=== PATIENT | male | born 1955 | race Two or more races ===

== ENCOUNTER 2021-06-05 09:32 | Emergency (ER) | payer MEDICAID ==
[~2021-06-05] VITALS: Ht 177.8 cm; Wt 81.6 kg
[2021-06-05 09:51] VITALS: BP 135/76
== END 2021-06-05 12:34 | disposition home or self-care (01) ==
LOC: EDBD 09:32 → ER 09:32
DX: S16.1XXA Strain of muscle, fascia and tendon at neck level, initial encounter (principal); M47.892 Other spondylosis, cervical region; F12.10 Cannabis abuse, uncomplicated; W01.0XXA Fall on same level from slipping, tripping and stumbling without subsequent striking against object, initial encounter; Y93.89 Activity, other specified; Y92.89 Other specified places as the place of occurrence of the external cause; Y99.8 Other external cause status
CPT/HCPCS: 72125; 93005

== ENCOUNTER 2021-08-03 11:52 | Inpatient (IN) | payer MEDICAID ==
[~2021-08-03] VITALS: Ht 167.6 cm; Wt 70.5 kg
[2021-08-03] MEDS ORDERED: SODIUM CHLORIDE 0.9% 1,000 ML IV ONE (12:00)
[2021-08-03] MEDS ORDERED: LORazepam 2MG/ML-1ML VIAL IV ONE ×3 (12:00→20:00)
[2021-08-03] MEDS ORDERED: cloNIDine HCL 0.1 MG TAB PO ONE ×2 (14:15→18:45)
[2021-08-03 14:29] LABS: Eosinophils # (auto) 0 10 ^3/uL (0-0.8); Lymphocytes # (auto) 1.1 10 ^3/uL (0.4-5.4)
[2021-08-03 14:31] LABS: Basophils # (auto) 0 10 ^3/uL (0-0.2); Basophils % (auto) 0.3 % (0.0-2.0); Hematocrit 39.4 % (41.0-53.0); Hemoglobin 12.8 g/dL (13.5-17.5); Mean Corpuscular Hgb Conc. 32.6 g/dL (32.0-36.0); Mean Corpuscular Volume 79.7 fL (80.0-100.0); Monocytes % (auto) 6.9 % (0.0-12.0); Neutrophils # (auto) 11.7 10 ^3/uL (1.6-8.6); Neutrophils % (auto) 84.8 % (37.0-80.0); Red Blood Cells 4.94 10^6/uL (4.5-5.90); Red Cell Distribution Width 15.1 % (11.8-14.3); White Blood Cell 13.8 10^3/uL (4.4-10.8)
[2021-08-03 14:50] LABS: Potassium 4.2 mmol/L (3.5-5.1)
[2021-08-03 14:55] LABS: Albumin 3.5 g/dL (3.4-5.0); BUN/Creatinine Ratio 22.3; Bilirubin, Total 1.2 mg/dL (0.2-1.0); Calcium 9.5 mg/dL (8.5-10.1); Magnesium 3.3 mg/dL (1.6-2.6); Total Protein 8.2 g/dL (6.4-8.2)
[2021-08-03 16:32] LABS: Urine Bacteria FEW /hpf (None Seen); Urine Blood 3+ /uL (Negative); Urine Mucus FEW (None Seen); Urine Specific Gravity 1.023 (1.001-1.035); Urine WBC 2 /hpf (0 - 3)
[2021-08-03] MEDS ORDERED: MORPHINE SULFATE INJECTION 2 MG/ML SYRG IV PRN ×2 (16:45→21:45)
[2021-08-03] MEDS ORDERED: NITROGLYCERIN 0.4 MG SL TAB SL PRN ×2 (16:45→21:45)
[2021-08-03 18:30] LABS: Cholesterol 110 mg/dL (< 200)
[2021-08-03 18:33] LABS: HDL Cholesterol 58 mg/dL (40-59); LDL Cholesterol 40 mg/dL (< 100); Triglycerides 74 mg/dL (< 150)
[2021-08-03] MEDS ORDERED: LABETALOL HCL 5 MG/ML 4ML SYRINGE IV ONE (18:45)
[2021-08-03] MEDS ORDERED: HALOPERIDOL LACTATE 5 MG/ML INJ VIAL ONE (19:49)
[2021-08-03] MEDS ORDERED: LORazepam 2MG/ML-1ML VIAL ONE (19:50)
[2021-08-03] MEDS ORDERED: HALOPERIDOL LACTATE 5 MG/ML INJ VIAL IM ONE (20:00)
[2021-08-03] MEDS ORDERED: levoFLOXacin 250MG 50 ML IV ONE (21:30)
[2021-08-03] MEDS ORDERED: LORazepam 2MG/ML-1ML VIAL IV PRN (21:30)
[2021-08-03] MEDS ORDERED: HALOPERIDOL LACTATE 5 MG/ML INJ VIAL IM PRN (21:30)
[2021-08-03] MEDS ORDERED: NIFEdipine ER 30 MG TAB PO ONE (21:30)
[2021-08-03] MEDS ORDERED: ATENOLOL 25 MG TAB PO ONE (21:30)
[2021-08-03] MEDS ORDERED: FAMOTIDINE (10MG/ML) 2ML VL IV ONE (21:30)
[2021-08-03] MEDS ORDERED: DEXTROSE (50%) 50ML SYRG IV PRN (21:45)
[2021-08-03] MEDS ORDERED: LORazepam 0.5 MG TAB PO PRN (21:45)
[2021-08-03] MEDS ORDERED: ACETAMINOPHEN 325 MG TAB PO PRN (21:45)
[2021-08-03] MEDS ORDERED: ONDANSETRON HCL 4 MG/2 ML VIAL IV PRN (21:45)
[2021-08-03] MEDS ORDERED: DOCUSATE SOD 100 MG CAP PO PRN (21:45)
[2021-08-03] MEDS ORDERED: ASPirin 81 mg TAB PO ONE (21:45)
[2021-08-03] MEDS: FAMOTIDINE (10MG/ML) 2ML VL IV SCH (22:00)
[2021-08-03] MEDS: SODIUM CHLORIDE 0.9% 1,000 ML IV SCH (22:15)
[2021-08-03] MEDS: hydrALAZINE HCL 25 MG TAB PO SCH (22:30)
[2021-08-03] MEDS: InsuLIN REG 1unit/0.01ml Soln (100units/ml) SC SCH (22:30)
[2021-08-03] MEDS: ATORVASTATIN 20 MG TAB PO SCH (22:30)
[2021-08-03] MEDS: ATENOLOL 25 MG TAB PO SCH (22:30)
[2021-08-03] MEDS: ACCU-CHEK COMFORT CURVE STRIP VI SCH (22:36)
[2021-08-03 23:42] LABS: Urine Bacteria FEW /hpf (None Seen); Urine Blood 3+ /uL (Negative); Urine Mucus FEW (None Seen); Urine Specific Gravity 1.021 (1.001-1.035); Urine WBC 523 /hpf (0 - 3)
[2021-08-03 23:45] LABS: Amphetamine Screen, Urine NEGATIVE (NEGATIVE); Barbiturate Scree,Urine NEGATIVE (NEGATIVE); Benzodiazephine Screen, Urine NEGATIVE (NEGATIVE); Cannabinoid Screen, Urine NEGATIVE (NEGATIVE); Cocaine Screen, Urine NEGATIVE (NEGATIVE); Opiate Scree,Urine NEGATIVE (NEGATIVE); Phencyclidine Screen, Urine NEGATIVE (NEGATIVE)
[2021-08-04] MEDS: hydrALAZINE HCL 25 MG TAB PO SCH ×2 (06:00→14:00)
[2021-08-04] MEDS: InsuLIN REG 1unit/0.01ml Soln (100units/ml) SC SCH ×4 (07:36→22:00)
[2021-08-04] MEDS: ACCU-CHEK COMFORT CURVE STRIP VI SCH ×4 (07:36→22:17)
[2021-08-04 08:14] LABS: Basophils % (auto) 0.5 % (0.0-2.0); Eosinophils # (auto) 0 10 ^3/uL (0-0.8); Hemoglobin 11.6 g/dL (13.5-17.5); Lymphocytes # (auto) 0.9 10 ^3/uL (0.4-5.4); Lymphocytes % (auto) 9.6 % (10.0-50.0); Mean Corpuscular Hemoglobin 25.9 pg (28.0-32.0); Neutrophils # (auto) 7.8 10 ^3/uL (1.6-8.6)
[2021-08-04 08:17] LABS: Basophils # (auto) 0 10 ^3/uL (0-0.2); Eosinophils % (auto) 0.2 % (0.0-7.0); Hematocrit 35.1 % (41.0-53.0); Mean Corpuscular Volume 78.5 fL (80.0-100.0); Monocytes # (auto) 0.7 10 ^3/uL (0-1.3); Monocytes % (auto) 7.7 % (0.0-12.0); Nucleated Red Blood Cells % 0.1 %; Red Blood Cells 4.48 10^6/uL (4.5-5.90); Red Cell Distribution Width 15.2 % (11.8-14.3); White Blood Cell 9.5 10^3/uL (4.4-10.8)
[2021-08-04 08:27] LABS: INR 1.12 (0.9-1.15); Partial Thromboplastin Time 24.2 sec (23.6-33.0)
[2021-08-04 08:41] LABS: Albumin 2.8 g/dL (3.4-5.0); BUN/Creatinine Ratio 35.6; Bilirubin, Total 1.1 mg/dL (0.2-1.0); Calcium 8.6 mg/dL (8.5-10.1); Magnesium 2.5 mg/dL (1.6-2.6); Phosphorus 3.6 mg/dL (2.5-4.90); Total Protein 6.9 g/dL (6.4-8.2); Uric Acid 6.6 mg/dL (3.5-7.2)
[2021-08-04 09:04] VITALS: BP 102/64
[2021-08-04] MEDS: ASPirin 81 mg TAB PO SCH (10:00)
[2021-08-04] MEDS: FAMOTIDINE (10MG/ML) 2ML VL IV SCH ×2 (10:00→21:48)
[2021-08-04] MEDS: NIFEdipine ER 30 MG TAB PO SCH (10:00)
[2021-08-04] MEDS: ENOXAPARIN SOD 40 MG/0.4 ML SYRINGE SC SCH (10:00)
[2021-08-04] MEDS: ATENOLOL 25 MG TAB PO SCH ×2 (10:00→21:49)
[2021-08-04 11:22] VITALS: BP 169/84
[2021-08-04] MEDS: LABETALOL HCL 5 MG/ML 4ML SYRINGE IV PRN (11:43)
[2021-08-04] MEDS: hydrALAZINE HCL 20 MG/ML VL IV PRN (14:15)
[2021-08-04] MEDS: SODIUM CHLORIDE 0.9% 1,000 ML IV SCH (14:15)
[2021-08-04 16:59] VITALS: BP 160/87
[2021-08-04 17:02] VITALS: BP 150/82
[2021-08-04 21:00] VITALS: BP 146/82
[2021-08-04] MEDS: levoFLOXacin 250MG 50 ML IV SCH (21:48)
[2021-08-04] MEDS: ATORVASTATIN 20 MG TAB PO SCH (21:49)
[2021-08-05] MEDS: InsuLIN REG 1unit/0.01ml Soln (100units/ml) SC SCH ×5 (06:25→23:05)
[2021-08-05] MEDS: ACCU-CHEK COMFORT CURVE STRIP VI SCH ×4 (06:25→22:00)
[2021-08-05] MEDS: SODIUM CHLORIDE 0.9% 1,000 ML IV SCH (07:05)
[2021-08-05 09:00] VITALS: BP 147/84
[2021-08-05] MEDS: NIFEdipine ER 30 MG TAB PO SCH (09:37)
[2021-08-05] MEDS: ASPirin 81 mg TAB PO SCH (09:37)
[2021-08-05] MEDS: FAMOTIDINE (10MG/ML) 2ML VL IV SCH ×2 (09:37→22:45)
[2021-08-05] MEDS: ENOXAPARIN SOD 40 MG/0.4 ML SYRINGE SC SCH (09:38)
[2021-08-05] MEDS: ATENOLOL 25 MG TAB PO SCH ×2 (09:38→22:46)
[2021-08-05] MEDS: MORPHINE SULFATE INJECTION 2 MG/ML SYRG IV PRN ×2 (12:30→23:20)
[2021-08-05 13:00] VITALS: BP 138/80
[2021-08-05 16:49] VITALS: BP 142/83
[2021-08-05 21:29] VITALS: BP 142/85
[2021-08-05 22:00] VITALS: BP 142/85
[2021-08-05] MEDS: levoFLOXacin 250MG 50 ML IV SCH (22:45)
[2021-08-05] MEDS: ATORVASTATIN 20 MG TAB PO SCH (22:46)
[2021-08-06] MEDS: SODIUM CHLORIDE 0.9% 1,000 ML IV SCH ×2 (00:57→16:25)
[2021-08-06 05:00] VITALS: BP 150/82
[2021-08-06] MEDS: ACCU-CHEK COMFORT CURVE STRIP VI SCH ×4 (06:50→21:04)
[2021-08-06] MEDS: InsuLIN REG 1unit/0.01ml Soln (100units/ml) SC SCH ×4 (06:50→21:03)
[2021-08-06] MEDS: ASPirin 81 mg TAB PO SCH (09:32)
[2021-08-06] MEDS: ENOXAPARIN SOD 40 MG/0.4 ML SYRINGE SC SCH (09:32)
[2021-08-06] MEDS: FAMOTIDINE (10MG/ML) 2ML VL IV SCH ×2 (09:32→21:08)
[2021-08-06] MEDS: NIFEdipine ER 30 MG TAB PO SCH (09:33)
[2021-08-06] MEDS: ATENOLOL 25 MG TAB PO SCH ×2 (09:33→21:09)
[2021-08-06 12:00] VITALS: BP 132/80
[2021-08-06 18:47] VITALS: BP 138/76
[2021-08-06] MEDS: ATORVASTATIN 20 MG TAB PO SCH (21:08)
[2021-08-06] MEDS: levoFLOXacin 250MG 50 ML IV SCH (21:08)
[2021-08-06 22:02] VITALS: BP 121/64
[2021-08-07] MEDS: MORPHINE SULFATE INJECTION 2 MG/ML SYRG IV PRN ×2 (02:37→21:03)
[2021-08-07 05:00] VITALS: BP 154/80
[2021-08-07] MEDS: ACCU-CHEK COMFORT CURVE STRIP VI SCH ×4 (06:24→21:02)
[2021-08-07] MEDS: InsuLIN REG 1unit/0.01ml Soln (100units/ml) SC SCH ×4 (06:24→21:06)
[2021-08-07 08:38] VITALS: BP 113/65
[2021-08-07] MEDS: ASPirin 81 mg TAB PO SCH (09:21)
[2021-08-07] MEDS: NIFEdipine ER 30 MG TAB PO SCH (09:22)
[2021-08-07] MEDS: FAMOTIDINE (10MG/ML) 2ML VL IV SCH ×2 (09:23→21:07)
[2021-08-07] MEDS: ENOXAPARIN SOD 40 MG/0.4 ML SYRINGE SC SCH (09:23)
[2021-08-07] MEDS: ATENOLOL 25 MG TAB PO SCH ×2 (09:23→21:02)
[2021-08-07] MEDS: SODIUM CHLORIDE 0.9% 1,000 ML IV SCH (09:26)
[2021-08-07 13:00] VITALS: BP 134/76
[2021-08-07] MEDS: ALUM & MAG HYDROX-SIMETH LIQ(MAALOX) 30 ML PO PRN (16:21)
[2021-08-07 17:14] VITALS: BP 136/81
[2021-08-07] MEDS: levoFLOXacin 250MG 50 ML IV SCH (21:01)
[2021-08-07] MEDS: ATORVASTATIN 20 MG TAB PO SCH (21:01)
[2021-08-07 22:00] VITALS: BP 138/76
[2021-08-08] MEDS: SODIUM CHLORIDE 0.9% 1,000 ML IV SCH ×2 (00:21→18:25)
[2021-08-08 05:00] VITALS: BP 129/63
[2021-08-08 06:20] LABS: Calcium 8.4 mg/dL (8.5-10.1); Potassium 4.1 mmol/L (3.5-5.1)
[2021-08-08 06:22] LABS: BUN/Creatinine Ratio 28.6
[2021-08-08] MEDS: ACCU-CHEK COMFORT CURVE STRIP VI SCH ×4 (06:37→21:36)
[2021-08-08] MEDS: InsuLIN REG 1unit/0.01ml Soln (100units/ml) SC SCH ×4 (06:38→21:37)
[2021-08-08 09:00] VITALS: BP 151/85
[2021-08-08] MEDS: ASPirin 81 mg TAB PO SCH (09:30)
[2021-08-08] MEDS: NIFEdipine ER 30 MG TAB PO SCH (09:31)
[2021-08-08] MEDS: FAMOTIDINE (10MG/ML) 2ML VL IV SCH ×2 (09:31→21:34)
[2021-08-08] MEDS: ENOXAPARIN SOD 40 MG/0.4 ML SYRINGE SC SCH (09:31)
[2021-08-08] MEDS: ATENOLOL 25 MG TAB PO SCH ×2 (09:31→21:35)
[2021-08-08 11:10] VITALS: BP 151/85
[2021-08-08 13:00] VITALS: BP 127/61
[2021-08-08 17:00] VITALS: BP 131/77
[2021-08-08] MEDS: ATORVASTATIN 20 MG TAB PO SCH (21:34)
[2021-08-08] MEDS: levoFLOXacin 250MG 50 ML IV SCH (21:40)
[2021-08-08 22:00] VITALS: BP 149/75
[2021-08-09 05:00] VITALS: BP 157/71
[2021-08-09] MEDS: LABETALOL HCL 5 MG/ML 4ML SYRINGE IV PRN (05:37)
[2021-08-09] MEDS: InsuLIN REG 1unit/0.01ml Soln (100units/ml) SC SCH ×4 (06:07→22:00)
[2021-08-09] MEDS: ACCU-CHEK COMFORT CURVE STRIP VI SCH ×4 (06:07→22:11)
[2021-08-09 09:00] VITALS: BP 145/81
[2021-08-09] MEDS: ASPirin 81 mg TAB PO SCH (10:18)
[2021-08-09] MEDS: NIFEdipine ER 30 MG TAB PO SCH (10:19)
[2021-08-09] MEDS: ATENOLOL 25 MG TAB PO SCH ×2 (10:19→22:10)
[2021-08-09] MEDS: FAMOTIDINE (10MG/ML) 2ML VL IV SCH ×2 (10:20→22:06)
[2021-08-09] MEDS: ENOXAPARIN SOD 40 MG/0.4 ML SYRINGE SC SCH (10:20)
[2021-08-09] MEDS: SODIUM CHLORIDE 0.9% 1,000 ML IV SCH (11:05)
[2021-08-09 13:00] VITALS: BP 144/72
[2021-08-09] MEDS ORDERED: levoFLOXacin 500 MG TAB PO ONE (14:00)
[2021-08-09 17:00] VITALS: BP 129/69
[2021-08-09] MEDS ORDERED: LORazepam 2MG/ML-1ML VIAL IV PRN (21:15)
[2021-08-09 22:00] VITALS: BP 138/90
[2021-08-09] MEDS: ATORVASTATIN 20 MG TAB PO SCH (22:06)
[2021-08-10 00:03] LABS: Folate (Folic Acid) 7.85 ng/mL (5.38-24)
[2021-08-10] MEDS: SODIUM CHLORIDE 0.9% 1,000 ML IV SCH ×2 (03:45→21:00)
[2021-08-10 05:00] VITALS: BP 154/77
[2021-08-10] MEDS: InsuLIN REG 1unit/0.01ml Soln (100units/ml) SC SCH ×4 (06:31→21:53)
[2021-08-10] MEDS: ACCU-CHEK COMFORT CURVE STRIP VI SCH ×4 (06:31→21:49)
[2021-08-10 09:00] VITALS: BP 138/73
[2021-08-10] MEDS: ASPirin 81 mg TAB PO SCH (10:03)
[2021-08-10] MEDS: levoFLOXacin 500 MG TAB PO SCH (10:04)
[2021-08-10] MEDS: ATENOLOL 25 MG TAB PO SCH ×2 (10:05→22:00)
[2021-08-10] MEDS: NIFEdipine ER 30 MG TAB PO SCH (10:06)
[2021-08-10] MEDS: ENOXAPARIN SOD 40 MG/0.4 ML SYRINGE SC SCH (10:11)
[2021-08-10] MEDS: FAMOTIDINE (10MG/ML) 2ML VL IV SCH ×2 (10:12→21:58)
[2021-08-10 13:00] VITALS: BP 138/70
[2021-08-10] MEDS: HYDROcodone-ACET 5/325MG TAB PO PRN ×2 (15:56→20:55)
[2021-08-10 17:00] VITALS: BP 125/77
[2021-08-10 21:37] VITALS: BP 143/77
[2021-08-10] MEDS: ATORVASTATIN 20 MG TAB PO SCH (21:58)
[2021-08-11 05:03] VITALS: BP 162/87
[2021-08-11] MEDS: hydrALAZINE HCL 20 MG/ML VL IV PRN (05:31)
[2021-08-11] MEDS: InsuLIN REG 1unit/0.01ml Soln (100units/ml) SC SCH ×4 (06:23→22:13)
[2021-08-11] MEDS: ACCU-CHEK COMFORT CURVE STRIP VI SCH ×4 (06:23→22:06)
[2021-08-11] MEDS: FAMOTIDINE (10MG/ML) 2ML VL IV SCH ×2 (10:34→22:05)
[2021-08-11] MEDS: levoFLOXacin 500 MG TAB PO SCH (10:35)
[2021-08-11] MEDS: ASPirin 81 mg TAB PO SCH (10:35)
[2021-08-11] MEDS: NIFEdipine ER 30 MG TAB PO SCH (10:36)
[2021-08-11] MEDS: ATENOLOL 25 MG TAB PO SCH ×2 (10:37→22:07)
[2021-08-11] MEDS: ENOXAPARIN SOD 40 MG/0.4 ML SYRINGE SC SCH (10:37)
[2021-08-11 14:00] VITALS: BP 122/73
[2021-08-11 17:00] VITALS: BP 141/78
[2021-08-11] MEDS: SODIUM CHLORIDE 0.9% 1,000 ML IV SCH (17:31)
[2021-08-11 22:05] VITALS: BP 139/84
[2021-08-11] MEDS: ATORVASTATIN 20 MG TAB PO SCH (22:05)
[2021-08-12] MEDS ORDERED: BISACODYL 10 MG RECT SUPP PR PRN (01:45)
[2021-08-12] MEDS: ALUM & MAG HYDROX-SIMETH LIQ(MAALOX) 30 ML PO PRN (01:48)
[2021-08-12 05:20] VITALS: BP 169/80
[2021-08-12] MEDS: SODIUM CHLORIDE 0.9% 1,000 ML IV SCH ×2 (05:50→22:25)
[2021-08-12] MEDS: ACCU-CHEK COMFORT CURVE STRIP VI SCH ×4 (06:03→21:23)
[2021-08-12] MEDS: InsuLIN REG 1unit/0.01ml Soln (100units/ml) SC SCH ×4 (06:03→21:23)
[2021-08-12] MEDS: hydrALAZINE HCL 20 MG/ML VL IV PRN (06:20)
[2021-08-12 07:05] VITALS: BP 145/79
[2021-08-12 09:00] VITALS: BP 93/69
[2021-08-12] MEDS: ATENOLOL 25 MG TAB PO SCH ×2 (10:00→21:34)
[2021-08-12] MEDS: NIFEdipine ER 30 MG TAB PO SCH (10:00)
[2021-08-12] MEDS: FAMOTIDINE (10MG/ML) 2ML VL IV SCH ×2 (10:11→21:34)
[2021-08-12] MEDS: levoFLOXacin 500 MG TAB PO SCH (10:13)
[2021-08-12] MEDS: ASPirin 81 mg TAB PO SCH (10:13)
[2021-08-12] MEDS: ENOXAPARIN SOD 40 MG/0.4 ML SYRINGE SC SCH (10:15)
[2021-08-12] MEDS ORDERED: LACTULOSE 20Gm/30ML SOLN PO ONE (16:45)
[2021-08-12 17:00] VITALS: BP 148/83
[2021-08-12 18:17] LABS: Basophils # (auto) 0.1 10 ^3/uL (0-0.2); Hemoglobin 11.9 g/dL (13.5-17.5); White Blood Cell 11.3 10^3/uL (4.4-10.8)
[2021-08-12 18:19] LABS: Basophils % (auto) 0.6 % (0.0-2.0); Eosinophils # (auto) 0.2 10 ^3/uL (0-0.8); Eosinophils % (auto) 1.5 % (0.0-7.0); Hematocrit 37.3 % (41.0-53.0); Lymphocytes # (auto) 1.8 10 ^3/uL (0.4-5.4); Lymphocytes % (auto) 15.7 % (10.0-50.0); Mean Corpuscular Hemoglobin 25.5 pg (28.0-32.0); Mean Corpuscular Hgb Conc. 31.9 g/dL (32.0-36.0); Mean Corpuscular Volume 79.9 fL (80.0-100.0); Monocytes # (auto) 1.1 10 ^3/uL (0-1.3); Monocytes % (auto) 9.5 % (0.0-12.0); Neutrophils # (auto) 8.2 10 ^3/uL (1.6-8.6); Neutrophils % (auto) 72.7 % (37.0-80.0); Red Blood Cells 4.67 10^6/uL (4.5-5.90); Red Cell Distribution Width 15.5 % (11.8-14.3)
[2021-08-12 18:36] LABS: BUN/Creatinine Ratio 18.4; Calcium 9.1 mg/dL (8.5-10.1); Potassium 4.4 mmol/L (3.5-5.1)
[2021-08-12] MEDS: ATORVASTATIN 20 MG TAB PO SCH (21:34)
[2021-08-12 21:36] VITALS: BP 141/84
[2021-08-13 05:23] VITALS: BP 135/60
[2021-08-13] MEDS: InsuLIN REG 1unit/0.01ml Soln (100units/ml) SC SCH ×2 (06:47→11:38)
[2021-08-13] MEDS: ACCU-CHEK COMFORT CURVE STRIP VI SCH ×2 (06:47→11:37)
[2021-08-13 09:00] VITALS: BP 160/88
[2021-08-13] MEDS: ASPirin 81 mg TAB PO SCH (10:05)
[2021-08-13] MEDS: FAMOTIDINE (10MG/ML) 2ML VL IV SCH (10:05)
[2021-08-13] MEDS: levoFLOXacin 500 MG TAB PO SCH (10:06)
[2021-08-13] MEDS: NIFEdipine ER 30 MG TAB PO SCH (10:06)
[2021-08-13] MEDS: ENOXAPARIN SOD 40 MG/0.4 ML SYRINGE SC SCH (10:08)
[2021-08-13] MEDS: ATENOLOL 25 MG TAB PO SCH (10:08)
[2021-08-13 13:00] VITALS: BP 137/67
[2021-08-13 17:00] VITALS: BP 145/76
== END 2021-08-13 18:32 | disposition home or self-care (01) | DRG 720 ==
LOC: ER 11:52 → EDBD 11:52 → TELE 16:45 → TELE-WESTW 08-04 10:48
PROVIDERS: ADMIT Hospitalist; ATTEND Family Medicine
DX: A41.9 Sepsis, unspecified organism (principal); J96.01 Acute respiratory failure with hypoxia; N17.0 Acute kidney failure with tubular necrosis; G93.41 Metabolic encephalopathy; J18.9 Pneumonia, unspecified organism; D69.6 Thrombocytopenia, unspecified; N13.8 Other obstructive and reflux uropathy; E11.22 Type 2 diabetes mellitus with diabetic chronic kidney disease; F03.90 Unspecified dementia, unspecified severity, without behavioral disturbance, psychotic disturbance, mood disturbance, and anxiety; R62.7 Adult failure to thrive; N40.1 Benign prostatic hyperplasia with lower urinary tract symptoms; N18.32 Chronic kidney disease, stage 3b; I16.1 Hypertensive emergency; I12.9 Hypertensive chronic kidney disease with stage 1 through stage 4 chronic kidney disease, or unspecified chronic kidney disease; N39.0 Urinary tract infection, site not specified; K75.81 Nonalcoholic steatohepatitis (NASH); E86.1 Hypovolemia; E78.5 Hyperlipidemia, unspecified; R65.20 Severe sepsis without septic shock; D64.9 Anemia, unspecified; R55 Syncope and collapse; J98.11 Atelectasis; E78.00 Pure hypercholesterolemia, unspecified; Z20.822 Contact with and (suspected) exposure to COVID-19; Z81.8 Family history of other mental and behavioral disorders; Z82.49 Family history of ischemic heart disease and other diseases of the circulatory system; Z83.3 Family history of diabetes mellitus
CPT/HCPCS: 36415; 51702; 70450; 70551; 71045; 74176; 78582; 80048; 80053; 80061; 80307; 81001; 82306; 82607; 82746; 82962; 83036; 83735; 83880; 84100; 84443; 84484; 84550; 85025; 85379; 85610; 85730; 87040; 87086; 87426; 93005; 93306; 93886; 93970; 95819; 96361; 96365; 96375; 96376; 97163; G0378; J1815; J3490

== ENCOUNTER 2021-08-30 04:13 | Emergency (ER) | payer MEDICAID ==
[~2021-08-30] VITALS: Ht 170.2 cm; Wt 90.7 kg
[2021-08-30] MEDS ORDERED: LABETALOL HCL 5 MG/ML 4ML SYRINGE IV ONE (04:45)
[2021-08-30] MEDS ORDERED: LABETALOL HCL 200 MG TAB PO ONE (04:45)
[2021-08-30 09:30] VITALS: BP 180/105
[2021-08-30] MEDS ORDERED: cloNIDine HCL 0.1 MG TAB PO ONE (09:30)
== END 2021-08-30 10:43 | disposition home or self-care (01) ==
LOC: EDBD 04:13 → ER 04:13
DX: I16.0 Hypertensive urgency (principal); I10 Essential (primary) hypertension; E11.9 Type 2 diabetes mellitus without complications; F12.10 Cannabis abuse, uncomplicated; R51.9 Headache, unspecified
CPT/HCPCS: 70450; 82962; 93005; 96374; 99284; J3490

== ENCOUNTER 2021-12-18 11:12 | Inpatient (IN) | payer MEDICAID ==
[2021-12-17] MEDS: ATORVASTATIN 20 MG TAB PO SCH (22:00)
[~2021-12-18] VITALS: Ht 177.8 cm; Wt 65.8 kg
[2021-12-18] MEDS ORDERED: LOSA-39 PO (13:29)
[2021-12-18] MEDS ORDERED: FERR325T20 PO (13:29)
[2021-12-18] MEDS ORDERED: CHOL20007 PO (13:29)
[2021-12-18] MEDS ORDERED: ATOR20TA50 PO (13:29)
[2021-12-18] MEDS ORDERED: AMLO-489 PO (13:29)
[2021-12-18] MEDS ORDERED: DIPH25TA31 PO (13:29)
[2021-12-18 13:45] LABS: Basophils # (auto) 0.1 10 ^3/uL (0-0.2); Basophils % (auto) 1.1 % (0.0-2.0); Eosinophils # (auto) 0 10 ^3/uL (0-0.8); Eosinophils % (auto) 0.2 % (0.0-7.0); Hematocrit 37.3 % (41.0-53.0); Hemoglobin 12.3 g/dL (13.5-17.5); Lymphocytes # (auto) 0.9 10 ^3/uL (0.4-5.4); Lymphocytes % (auto) 12.5 % (10.0-50.0); Mean Corpuscular Hemoglobin 25.8 pg (28.0-32.0); Mean Corpuscular Hgb Conc. 32.9 g/dL (32.0-36.0); Mean Corpuscular Volume 78.6 fL (80.0-100.0); Monocytes # (auto) 0.3 10 ^3/uL (0-1.3); Monocytes % (auto) 3.9 % (0.0-12.0); Neutrophils # (auto) 6.1 10 ^3/uL (1.6-8.6); Neutrophils % (auto) 82.3 % (37.0-80.0); Red Blood Cells 4.74 10^6/uL (4.5-5.90); Red Cell Distribution Width 16.5 % (11.8-14.3); White Blood Cell 7.4 10^3/uL (4.4-10.8)
[2021-12-18 14:06] LABS: Albumin 3.1 g/dL (3.4-5.0); BUN/Creatinine Ratio 18.9; Calcium 9.3 mg/dL (8.5-10.1); Magnesium 2.2 mg/dL (1.6-2.6); Potassium 3.6 mmol/L (3.5-5.1)
[2021-12-18 14:09] LABS: Bilirubin, Total 0.6 mg/dL (0.2-1.0); Total Protein 7.1 g/dL (6.4-8.2)
[2021-12-18] MEDS ORDERED: NITROGLYCERIN 0.4 MG SL TAB SL PRN (15:15)
[2021-12-18] MEDS ORDERED: MORPHINE SULFATE INJECTION 2 MG/ML SYRG IV PRN (15:15)
[2021-12-18] MEDS ORDERED: LABETALOL HCL 5 MG/ML 4ML SYRINGE IV ONE (17:15)
[2021-12-18] MEDS ORDERED: NIFEdipine ER 30 MG TAB PO ONE (17:15)
[2021-12-18] MEDS ORDERED: LABETALOL HCL 5 MG/ML 4ML SYRINGE IV PRN (17:15)
[2021-12-18] MEDS ORDERED: BENAZEPRIL HCL 10 MG TAB PO ONE (17:15)
[2021-12-18] MEDS ORDERED: LACTULOSE 20Gm/30ML SOLN PO PRN (17:30)
[2021-12-18] MEDS ORDERED: HYDROcodone-ACET 5/325MG TAB PO ONE (17:30)
[2021-12-18] MEDS: hydrALAZINE HCL 20 MG/ML VL IV PRN ×2 (17:30→23:02)
[2021-12-18] MEDS ORDERED: ONDANSETRON HCL 4 MG/2 ML VIAL IV PRN (17:30)
[2021-12-18] MEDS ORDERED: IPRATROPIUM BROM 0.5 MG/2.5ML INH SOL NEB ONE (17:30)
[2021-12-18] MEDS ORDERED: DEXTROSE (50%) 50ML SYRG IV PRN (17:30)
[2021-12-18] MEDS ORDERED: LORazepam 0.5 MG TAB PO PRN (17:30)
[2021-12-18] MEDS ORDERED: DOCUSATE SOD 100 MG CAP PO PRN (17:30)
[2021-12-18] MEDS ORDERED: FAMOTIDINE (10MG/ML) 2ML VL IV ONE (17:30)
[2021-12-18] MEDS: SODIUM CHLORIDE 0.9% 1,000 ML IV SCH ×2 (17:30→23:58)
[2021-12-18] MEDS ORDERED: HYDROcodone-ACET 5/325MG TAB PO PRN (17:30)
[2021-12-18] MEDS ORDERED: CALCIUM W/VIT D (600MG/400IU) TAB PO ONE (17:30)
[2021-12-18] MEDS ORDERED: ACETAMINOPHEN 325 MG TAB PO PRN (17:30)
[2021-12-18] MEDS ORDERED: IPRATROPIUM BROM 0.5 MG/2.5ML INH SOL NEB SCH ×2 (18:00→19:30)
[2021-12-18 18:30] VITALS: BP 133/96
[2021-12-18] MEDS ORDERED: IPRATROPIUM BROM 0.5 MG/2.5ML INH SOL NEB PRN (19:45)
[2021-12-18 20:00] VITALS: BP 165/84
[2021-12-18 20:38] VITALS: BP 133/96
[2021-12-18 21:37] VITALS: BP 133/96
[2021-12-18 22:00] VITALS: BP 165/84
[2021-12-18] MEDS: InsuLIN REG 1unit/0.01ml Soln (100units/ml) SC SCH (22:00)
[2021-12-18] MEDS: ACCU-CHEK COMFORT CURVE STRIP VI SCH (22:00)
[2021-12-19] MEDS ORDERED: HALOPERIDOL LACTATE 5 MG/ML INJ VIAL IM PRN (00:45)
[2021-12-19 03:39] VITALS: BP 149/72
[2021-12-19 05:00] VITALS: BP 149/99
[2021-12-19] MEDS: InsuLIN REG 1unit/0.01ml Soln (100units/ml) SC SCH ×4 (06:08→22:00)
[2021-12-19] MEDS: ACCU-CHEK COMFORT CURVE STRIP VI SCH ×4 (06:08→22:00)
[2021-12-19 06:49] LABS: Basophils # (auto) 0.1 10 ^3/uL (0-0.2); Basophils % (auto) 0.8 % (0.0-2.0); Eosinophils # (auto) 0 10 ^3/uL (0-0.8); Eosinophils % (auto) 0.4 % (0.0-7.0); Hematocrit 35.2 % (41.0-53.0); Hemoglobin 11.9 g/dL (13.5-17.5); INR 1.13 (0.9-1.15); Lymphocytes # (auto) 1.6 10 ^3/uL (0.4-5.4); Lymphocytes % (auto) 20.8 % (10.0-50.0); Mean Corpuscular Hemoglobin 27.1 pg (28.0-32.0); Mean Corpuscular Hgb Conc. 33.9 g/dL (32.0-36.0); Mean Corpuscular Volume 79.9 fL (80.0-100.0); Monocytes # (auto) 0.5 10 ^3/uL (0-1.3); Neutrophils # (auto) 5.5 10 ^3/uL (1.6-8.6); Partial Thromboplastin Time 25.2 sec (23.6-33.0); Red Blood Cells 4.41 10^6/uL (4.5-5.90); Red Cell Distribution Width 16.1 % (11.8-14.3); White Blood Cell 7.6 10^3/uL (4.4-10.8)
[2021-12-19 07:33] LABS: Calcium 9.7 mg/dL (8.5-10.1); Magnesium 1.9 mg/dL (1.6-2.6); Phosphorus 2.9 mg/dL (2.5-4.90); Potassium 3.6 mmol/L (3.5-5.1)
[2021-12-19 07:41] LABS: Albumin 3.1 g/dL (3.4-5.0); BUN/Creatinine Ratio 17.1; CRP High Sensitivity 0.48 mg/dL (< 0.3); Total Protein 6.8 g/dL (6.4-8.2); Uric Acid 4.3 mg/dL (3.5-7.2)
[2021-12-19] MEDS ORDERED: FERROUS SULFATE 300 MG/5 ML ORAL LIQ PO SCH (08:00)
[2021-12-19] MEDS ORDERED: CALCIUM W/VIT D (600MG/400IU) TAB PO SCH (08:00)
[2021-12-19 09:00] VITALS: BP 165/97
[2021-12-19] MEDS: BENAZEPRIL HCL 10 MG TAB PO SCH (10:00)
[2021-12-19] MEDS ORDERED: FAMOTIDINE (10MG/ML) 2ML VL IV SCH (10:00)
[2021-12-19] MEDS ORDERED: NIFEdipine ER 30 MG TAB PO SCH (10:00)
[2021-12-19] MEDS ORDERED: ENOXAPARIN SOD 40 MG/0.4 ML SYRINGE SC SCH (10:00)
[2021-12-19] MEDS ORDERED: CHOLECALCIFEROL (VITD3) 2,000 UNIT CAP/TAB PO SCH (10:00)
[2021-12-19] MEDS: ASPirin 81 mg TAB PO SCH (10:00)
[2021-12-19] MEDS ORDERED: cloNIDine 0.2 mg/24hr 7DAY PATCH TD ONE (11:00)
[2021-12-19] MEDS ORDERED: LABETALOL HCL 5 MG/ML 4ML SYRINGE IV PRN (11:00)
[2021-12-19] MEDS: ATORVASTATIN 20 MG TAB PO SCH (22:00)
[2021-12-20 05:00] VITALS: BP 156/64
[2021-12-20] MEDS: ACCU-CHEK COMFORT CURVE STRIP VI SCH ×4 (06:14→22:08)
[2021-12-20] MEDS: InsuLIN REG 1unit/0.01ml Soln (100units/ml) SC SCH ×4 (06:15→22:00)
[2021-12-20 09:00] VITALS: BP 135/68
[2021-12-20] MEDS: BENAZEPRIL HCL 10 MG TAB PO SCH ×2 (10:00→17:50)
[2021-12-20] MEDS: ASPirin 81 mg TAB PO SCH (10:00)
[2021-12-20 13:00] VITALS: BP 120/84
[2021-12-20 17:00] VITALS: BP 147/51
[2021-12-20 22:00] VITALS: BP 130/93
[2021-12-20] MEDS: ATORVASTATIN 20 MG TAB PO SCH (22:00)
[2021-12-21] MEDS: InsuLIN REG 1unit/0.01ml Soln (100units/ml) SC SCH (06:58)
[2021-12-21] MEDS: ACCU-CHEK COMFORT CURVE STRIP VI SCH (06:58)
[2021-12-21 09:00] VITALS: BP 138/88
[2021-12-21] MEDS: ASPirin 81 mg TAB PO SCH (09:46)
[2021-12-21] MEDS ORDERED: CLON0.2D TD (10:09)
[2021-12-21 12:26] VITALS: BP 138/88
[2021-12-21 12:56] VITALS: BP 154/86
[2021-12-21 13:00] VITALS: BP 154/86
[2021-12-26] MEDS ORDERED: cloNIDine 0.2 mg/24hr 7DAY PATCH TD SCH (11:00)
== END 2021-12-21 13:00 | disposition home or self-care (01) | DRG 384 ==
LOC: EDBD 11:12 → ER 11:12 → TELE 15:11 → TELE-WESTW 18:01 → TELE-CENTR 23:42 → CENTRAL 12-21 01:59
PROVIDERS: ADMIT Hospitalist; ATTEND Internal Medicine
DX: S40.012A Contusion of left shoulder, initial encounter (principal); F03.91 Unspecified dementia, unspecified severity, with behavioral disturbance; E11.40 Type 2 diabetes mellitus with diabetic neuropathy, unspecified; E11.65 Type 2 diabetes mellitus with hyperglycemia; D64.9 Anemia, unspecified; E55.9 Vitamin D deficiency, unspecified; E78.5 Hyperlipidemia, unspecified; S40.811A Abrasion of right upper arm, initial encounter; I16.9 Hypertensive crisis, unspecified; W01.0XXA Fall on same level from slipping, tripping and stumbling without subsequent striking against object, initial encounter; S80.211A Abrasion, right knee, initial encounter; M48.02 Spinal stenosis, cervical region; M17.0 Bilateral primary osteoarthritis of knee; Z20.822 Contact with and (suspected) exposure to COVID-19; M47.812 Spondylosis without myelopathy or radiculopathy, cervical region; F17.200 Nicotine dependence, unspecified, uncomplicated; I10 Essential (primary) hypertension; Z91.19 Patient's noncompliance with other medical treatment and regimen; Y93.89 Activity, other specified; Y92.098 Other place in other non-institutional residence as the place of occurrence of the external cause; Y99.8 Other external cause status; Z86.73 Personal history of transient ischemic attack (TIA), and cerebral infarction without residual deficits; R55 Syncope and collapse
CPT/HCPCS: 36415; 70450; 71045; 72125; 73060; 73562; 80053; 80061; 82306; 82728; 82962; 83036; 83690; 83735; 83880; 84100; 84443; 84484; 84550; 85025; 85379; 85610; 85652; 85730; 86141; 87040; 93005; 94640; 96372; 96374; G0378; J1815; J3490